=== PATIENT | female | born 1960 | race African-American/Black ===

== ENCOUNTER 2017-11-07 11:27 | Emergency (ER) | payer MEDICARE, MEDICAID ==
[~2017-11-07] VITALS: Ht 165.1 cm; Wt 91.6 kg
[~2017-11-07 11:27] MED LIST: AMLODIPINE BESY10 MG ORAL; BENADRYL25 MG ORAL; BYSTOLIC10 MG ORAL; CYCLOBENZAPRINE10 MG ORAL; METOPROLOL SUCC25 MG ORAL; NORCO 5-325 TA1 EACH ORAL; PROMETHAZI6.25 MG/1 ORAL
[2017-11-07 11:40] VITALS: BP 153/85
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
[2017-11-07 12:19] VITALS: BP 142/86
[2017-11-07] MEDS ORDERED: Methocarbamol 500mg tab ORAL ONE (12:30)
[2017-11-07] MEDS ORDERED: Acetaminophen 500mg (ES) tab ORAL ONE (12:30)
[2017-11-07] MEDS ORDERED: ROBAXIN500 MG PO (12:57)
[2017-11-07] MEDS ORDERED: TYLENOL EXTRA500 MG ORAL (12:57)
[2017-11-07] MEDS ORDERED: LIDOCAINE700 M1 TP (12:57)
[2017-11-07 13:16] VITALS: BP 140/86
--- NOTE | 2017-11-08 09:32 | Diagnostic Imaging Report ---
Indication: Right shoulder pain Technique: Right shoulder 3 views Comparison: None Findings: There is no acute fracture or dislocation. Acromioclavicular degenerative changes are seen. Soft tissues are grossly unremarkable. There is osteopenia. Impression: No acute osseous abnormality.
== END 2017-11-07 13:16 | disposition home or self-care (01) ==
LOC: EMR 11:46
DX: M54.5 Low back pain (principal); M25.511 Pain in right shoulder; M85.821 Other specified disorders of bone density and structure, right upper arm
CPT/HCPCS: 99284

== ENCOUNTER 2019-04-15 11:20 | Emergency (ER) | payer MEDICARE, MEDICAID ==
[~2019-04-15] VITALS: Ht 170.2 cm; Wt 63.5 kg
[~2019-04-15 11:20] MED LIST changes: +LIDOCAINE700 M1 TP; +ROBAXIN500 MG PO; +TYLENOL EXTRA500 MG ORAL
[2019-04-15 11:24] VITALS: BP 152/90
--- NOTE | 2019-04-15 11:28 | NUR ---
ED Nurse Note: PT. BROUGHT IN BY RA 826 FROM HOME DUE TO ANXIETY THAT STARTED TODAY. PER EMS, PT. IS NON-COMPLIANT WITH HER MEDICATION REGIMEN. PT. AAOX4. AMBULATORY. NO S/S OF ACUTE DISTRESS NOTED AT THIS TIME.
[2019-04-15 12:26] LABS: APPEARANCE,URINE CLEAR; BASOPHILS % (AUTO) 1.5 % (0.0-2.0); BILIRUBIN, URINE NEGATIVE (NEGATIVE); COLOR,URINE PALE YELLOW; EOSINOPHILS % (AUTO) 0.2 % (0.0-3.0); GLUCOSE, URINE (UA) NEGATIVE (NEGATIVE); HEMATOCRIT 43.2 % (37.0-47.0); HEMOGLOBIN 14.4 G/DL (12.0-16.0); KETONES,URINE NEGATIVE (NEGATIVE); LEUKOCYTE ESTERASE ,URINE NEGATIVE (NEGATIVE); LYMPHOCYTES % (AUTO) 17.5 % (20.0-45.0); MEAN CORPUSCULAR VOLUME 88 FL (80-99); MONOCYTES % (AUTO) 7.3 % (1.0-10.0); NEUTROPHILS % (AUTO) 73.6 % (45.0-75.0); NITRITE,URINE NEGATIVE (NEGATIVE); PH,URINE 6 (4.5-8.0); PLATELET COUNT 323 K/UL (150-450); PROTEIN,URINE 2+ (NEGATIVE); RED BLOOD COUNT 4.94 M/UL (4.20-5.40); RED CELL DISTRIBUTION WIDTH 12.6 % (11.6-14.8); UROBILINOGEN,URINE NORMAL MG/DL (0.0-1.0); WHITE BLOOD COUNT 12.1 K/UL (4.8-10.8)
[2019-04-15 12:41] LABS: ANION GAP 11 mmol/L (5-15); BLOOD UREA NITROGEN 9 mg/dL (7-18); CALCIUM 9.6 MG/DL (8.5-10.1); CARBON DIOXIDE 30 MMOL/L (21-32); CHLORIDE 102 MMOL/L (98-107); CREATININE 0.7 MG/DL (0.55-1.30); POTASSIUM 3.4 MMOL/L (3.5-5.1); SODIUM 143 MMOL/L (136-145)
[2019-04-15 12:45] LABS: ALANINE AMINOTRANSFERASE 36 U/L (12-78); ALBUMIN 4.3 G/DL (3.4-5.0); ALBUMIN/GLOBULIN RATIO 0.8 (1.0-2.7); ALKALINE PHOSPHATASE 85 U/L (46-116); ASPARTATE AMINO TRANSFERASE 29 U/L (15-37); BILIRUBIN,TOTAL 0.3 MG/DL (0.2-1.0)
--- NOTE | 2019-04-15 13:00 | NUR ---
ER DISCHARGE NOTE: Patient is cleared to be discharged per ERMD, pt is aox4, on room air, with stable vital signs. pt was given dc and prescription instructions, pt was able to verbalize understanding, pt is able to ambulate with steady gait. pt took all belongings.
[2019-04-15 14:38] VITALS: BP 152/90
--- NOTE | 2019-04-16 07:39 | Emergency Room Report ---
History of Present Illness General Chief Complaint: General Complaint Source: Patient, EMS Present Illness HPI 58-year-old female presents ED for evaluation. States that she is having adverse reaction to her hydroxyzine. Recently prescribed for anxiety. States that her thoughts are racing and she feels very anxious. States this is a new medication. Denies hearing voices. Denies SI or HI. Denies any weakness. Denies any dizziness. Denies chest pain or shortness of breath. Denies abdominal pain. No other aggravating relieving factors. Denies any other associated symptoms Allergies: Coded Allergies: No Known Allergies (Unverified , 09/29/15) Patient History Past Medical History: HTN Past Surgical History: none Pertinent Family History: none Social History: Denies: smoking, alcohol use, drug use Now: No Immunizations: UTD Reviewed Nursing Documentation: PMH: Agreed; PSxH: Agreed Nursing Documentation-PMH Hx Cardiac Problems: No - arthritis Hx Hypertension: Yes Hx Cancer: No Hx Gastrointestinal Problems: No Hx Neurological Problems: No Review of Systems All Other Systems: negative except mentioned in HPI Physical Exam Vital Signs Date Time Temp Pulse Resp B/P (MAP) Pulse Ox O2 Delivery O2 Flow Rate FiO2 04/15/19 11:12 97.9 90 16 152/90 (110) 100 Room Air Sp02 EP Interpretation: reviewed, normal General Appearance: no apparent distress, alert, GCS 15, non-toxic Head: normocephalic, atraumatic Eyes: bilateral eye normal inspection, bilateral eye PERRL ENT: hearing grossly normal, normal pharynx, no angioedema, normal voice Neck: full range of motion, supple/symm/no masses Respiratory: chest non-tender, lungs clear, normal breath sounds, speaking full sentences Cardiovascular #1: regular rate, rhythm, no edema Cardiovascular #2: 2+ carotid (R), 2+ carotid (L), 2+ radial (R), 2+ radial (L) , 2+ dorsalis pedis (R), 2+ dorsalis pedis (L) Gastrointestinal: normal bowel sounds, non tender, soft, non-distended, no guarding, no rebound Rectal: deferred Genitourinary: normal inspection, no CVA tenderness Musculoskeletal: back normal, gait/station normal, normal range of motion, non- tender Neurologic: alert, oriented x3, responsive, motor strength/tone normal, sensory intact, speech normal Psychiatric: judgement/insight normal, memory normal, no suicidal/homicidal ideation, no delusions, anxious Reflexes: 3+ bicep (R), 3+ bicep (L), 3+ tricep (R), 3+ tricep (L), 3+ knee (R) , 3+ knee (L) Lymphatic: no adenopathy Medical Decision Making Diagnostic Impression: Primary Impression: Adverse reaction to drug Qualified Codes: T50.905A - Adverse effect of unspecified drugs, medicaments and biological substances, initial encounter Additional Impressions: Chronic pain syndrome Opiate dependence Qualified Codes: F11.29 - Opioid dependence with unspecified opioid-induced disorder ER Course Hospital Course 58-year-old female presents with anxiety, thoughts racing after taking hydroxyzine. Differential diagnoses include: psychosis, ETOH, anxiety Clinical course Patient placed on stretcher. on youth nutritional monitor. After initial history and physical I ordered labs, IVFs labs reviewed- minimal leukocytosis, hemoglobin/hematocrit stable, UDS + opiates , electrolytes okay Review of cures patient is receiving extensive narcotic and controlled prescriptions on a monthly basis. On reassessment patient states she is feeling better. Patient is showing me pill bottles with her multiple medications. When we reviewed the pill that she says is hydroxyzine is actually amlodipine. I am concerned that patient is not also taking her medication appropriately and I explained to her the importance of properly identifying these medications. I spoke to PMD Dr. Mckeon; agrees that patient can be safely discharged and he will see in his office today if she chooses to I. I feel this is a highly complex case requiring extensive working including EKG/Rhythm strip, Xray/CT/US, Blood/urine lab work, repeat exams while in ED, and administration of strong opiates/narcotics for pain control, admission to hospital or close patient follow up. Diagnosis - adverse reaction to drug, chronic pain syndrome, opiate dependence Stable and discharged to home. Followup with PMD. Return to ED if symptoms recur or worse Labs Test 04/15/19 12:00 White Blood Count 12.1 K/UL (4.8-10.8) Red Blood Count 4.94 M/UL (4.20-5.40) Hemoglobin 14.4 G/DL (12.0-16.0) Hematocrit 43.2 % (37.0-47.0) Mean Corpuscular Volume 88 FL (80-99) Mean Corpuscular Hemoglobin 29.1 PG (27.0-31.0) Mean Corpuscular Hemoglobin Concent 33.2 G/DL (32.0-36.0) Red Cell Distribution Width 12.6 % (11.6-14.8) Platelet Count 323 K/UL (150-450) Mean Platelet Volume 6.7 FL (6.5-10.1) Neutrophils (%) (Auto) 73.6 % (45.0-75.0) Lymphocytes (%) (Auto) 17.5 % (20.0-45.0) Monocytes (%) (Auto) 7.3 % (1.0-10.0) Eosinophils (%) (Auto) 0.2 % (0.0-3.0) Basophils (%) (Auto) 1.5 % (0.0-2.0) Urine Color Pale yellow Urine Appearance Clear Urine pH 6 (4.5-8.0) Urine Specific [place] 1.015 (1.005-1.035) Urine Protein 2+ (NEGATIVE) Urine Glucose (UA) Negative (NEGATIVE) Urine Ketones Negative (NEGATIVE) Urine Blood 1+ (NEGATIVE) Urine Nitrite Negative (NEGATIVE) Urine Bilirubin Negative (NEGATIVE) Urine Urobilinogen Normal MG/DL (0.0-1.0) Urine Leukocyte Esterase Negative (NEGATIVE) Urine RBC 0-2 /HPF (0 - 2) Urine WBC 0-2 /HPF (0 - 2) Urine Squamous Epithelial Cells Few /LPF (NONE/OCC) Urine Bacteria Occasional /HPF (NONE) Sodium Level 143 MMOL/L (136-145) Potassium Level 3.4 MMOL/L (3.5-5.1) Chloride Level 102 MMOL/L (98-107) Carbon Dioxide Level 30 MMOL/L (21-32) Anion Gap 11 mmol/L (5-15) Blood Urea Nitrogen 9 mg/dL (7-18) Creatinine 0.7 MG/DL (0.55-1.30) Estimat Glomerular Filtration Rate > 60 mL/min (>60) Glucose Level 124 MG/DL (74-106) Calcium Level 9.6 MG/DL (8.5-10.1) Total Bilirubin 0.3 MG/DL (0.2-1.0) Aspartate Amino Transf (AST/SGOT) 29 U/L (15-37) Alanine Aminotransferase (ALT/SGPT) 36 U/L (12-78) Alkaline Phosphatase 85 U/L (46-116) Total Protein 9.8 G/DL (6.4-8.2) Albumin 4.3 G/DL (3.4-5.0) Globulin 5.5 g/dL Albumin/Globulin Ratio 0.8 (1.0-2.7) Salicylates Level 1.1 ug/mL (2.8-20) Urine Opiates Screen Positive (NEGATIVE) Acetaminophen Level < 2 MCG/ML (10-30) Urine Barbiturates Screen Negative (NEGATIVE) Phencyclidine (PCP) Screen Negative (NEGATIVE) Urine Amphetamines Screen Negative (NEGATIVE) Urine Benzodiazepines Screen Negative (NEGATIVE) Urine Cocaine Screen Negative (NEGATIVE) Urine Marijuana (THC) Screen Negative (NEGATIVE) Serum Alcohol < 3 mg/dL Last Vital Signs Date Time Temp Pulse Resp B/P (MAP) Pulse Ox O2 Delivery O2 Flow Rate FiO2 04/15/19 14:38 97.9 90 16 152/90 100 Room Air Status: improved Disposition: HOME, SELF-CARE Condition: Stable Referrals: NOT CHOSEN IPA/MD,REFERRING Patient Instructions: Polypharmacy Problems, [id number] Norberto Heart MD Apr 16, 2019 07:39
== END 2019-04-15 13:00 | disposition home or self-care (01) ==
LOC: EDBD 11:20 → EMR 11:40
DX: T43.595A Adverse effect of other antipsychotics and neuroleptics, initial encounter (principal); I10 Essential (primary) hypertension; M19.90 Unspecified osteoarthritis, unspecified site; G89.4 Chronic pain syndrome; F11.29 Opioid dependence with unspecified opioid-induced disorder; F41.9 Anxiety disorder, unspecified; Y92.9 Unspecified place or not applicable
CPT/HCPCS: 36415; 80053; 80307; 81003; 85025; 96360; 99284; G0480; 80329

== ENCOUNTER → 2020-02-17 | Outpatient (CLI) | payer MEDICARE, MEDICAID ==
--- NOTE | 2020-02-17 18:01 | Diagnostic Imaging Report ---
Indication: Cough Technique: XRAY Chest 2v Comparison: 09/29/2015 Findings: Heart size and mediastinal contours within normal limits and stable compared to the prior exam. Moderate atherosclerotic calcifications noted in the aortic arch. There is no focal airspace consolidation. No pleural effusion, pneumothorax or radiographic evidence to suggest pulmonary edema. Bones appear slightly demineralized and there are very mild degenerative changes in the spine. There is no acute osseous abnormality. Impression: No radiographic evidence of acute cardiopulmonary disease.
== END | disposition home or self-care (01) ==
LOC: RAD 14:19
DX: Z01.818 Encounter for other preprocedural examination (principal); R05 Cough
CPT/HCPCS: 71046

== ENCOUNTER 2020-07-30 07:10 | Emergency (ER) | payer MEDICARE, MEDICAID ==
[~2020-07-30] VITALS: Ht 152.4 cm; Wt 74.8 kg
[2020-07-30 07:15] VITALS: BP 128/83
--- NOTE | 2020-07-30 07:15 | NUR ---
ED Nurse Note: Pt walked in to ED from home c/o bodyaches, sorethroat x6 days. Pt also reports chills. Respirations even and unlabored on room air. Vitals stable as documented. A+Ox4, speaking in complete sentences.
[2020-07-30] MEDS ORDERED: Ketorolac 30mg Inj IV ONE (07:45)
[2020-07-30 09:10] VITALS: BP 126/74
--- NOTE | 2020-07-30 09:10 | NUR ---
ER DISCHARGE NOTE: Patient is cleared to be discharged per ERMD, pt is aox4, on room air, with stable vital signs. pt was given dc and prescription instructions, pt was able to verbalize understanding, pt id band and iv site removed without complications. pt is able to ambulate with steady gait. pt took all belongings.
--- NOTE | 2020-07-30 10:24 | Emergency Room Report ---
History of Present Illness General Chief Complaint: Flu Like Symptoms Source: Patient Present Illness HPI 59 yo Female presents for evaluation. States she has had body aches, cough, sore throat for the last 6 days. No fever. Pain is dull, 10 out of 10, nonradiating. States that she recently saw her PMD. Was scheduled to see him today but states that she felt very weak. States she has had Covid testing A ugust but not recently. Denies chest pain or shortness of breath. No other aggravating relieving factors. Denies any other associated symptoms Allergies: Coded Allergies: No Known Allergies (Unverified , 09/29/15) COVID-19 Screening Contact w/high risk pt: No Experienced COVID-19 symptoms?: Yes COVID-19 Testing performed PRICING ACTUARY: Yes - 02/27/20 COVID-19 Screening: Negative COVID-19 COVID-19 Testing Source: clinic Patient History Past Medical History: HTN Past Surgical History: none Pertinent Family History: none Social History: Denies: smoking, alcohol use, drug use Now: No Immunizations: UTD Reviewed Nursing Documentation: PMH: Agreed; PSxH: Agreed Nursing Documentation-PMH Hx Cardiac Problems: No - arthritis Hx Hypertension: Yes Hx Cancer: No Hx Gastrointestinal Problems: No - GERD Hx Neurological Problems: No Review of Systems All Other Systems: negative except mentioned in HPI Physical Exam Vital Signs Date Time Temp Pulse Resp B/P (MAP) Pulse Ox O2 Delivery O2 Flow Rate FiO2 07/30/20 07:12 98.6 95 19 121/79 (93) 98 Room Air Sp02 EP Interpretation: reviewed, normal General Appearance: no apparent distress, alert, GCS 15, non-toxic Head: normocephalic, atraumatic Eyes: bilateral eye normal inspection, bilateral eye PERRL ENT: hearing grossly normal, normal pharynx, no angioedema, normal voice Neck: full range of motion, supple/symm/no masses Respiratory: chest non-tender, lungs clear, normal breath sounds, speaking full sentences Cardiovascular #1: regular rate, rhythm, no edema Cardiovascular #2: 2+ carotid (R), 2+ carotid (L), 2+ radial (R), 2+ radial (L), 2+ dorsalis pedis (R), 2+ dorsalis pedis (L) Gastrointestinal: normal bowel sounds, non tender, soft, non-distended, no guarding, no rebound Rectal: deferred Genitourinary: normal inspection, no CVA tenderness Musculoskeletal: back normal, normal range of motion, gait/station normal, non- tender Neurologic: alert, motor strength/tone normal, oriented x3, sensory intact, responsive, speech normal Psychiatric: judgement/insight normal, memory normal, mood/affect normal, no suicidal/homicidal ideation Reflexes: 3+ bicep (R), 3+ bicep (L), 3+ tricep (R), 3+ tricep (L), 3+ knee (R), 3+ knee (L) Lymphatic: no adenopathy Medical Decision Making Diagnostic Impression: Primary Impression: Upper respiratory infection Qualified Codes: J06.9 - Acute upper respiratory infection, unspecified ER Course Hospital Course 59-year-old female presents with body aches, cough. Differential diagnoses include: URI, pharyngitis, otitis media, asthma Clinical course Patient placed on stretcher. After initial history, physical exam reveals a female in no acute distress. Bilateral TM unremarkable. No pharyngeal erythema. No tonsillar exudates. No lymphadenopathy. lungs clear. abdomen soft. Vitals stable. Not tachypneic. Not hypoxic. Given IV fluids. Rapid Covid negative. Discussed findings with patient. Safe for discharge with close outpatient follow-up. Patient will go see her PMD today Diagnosis - URI Stable and discharged home. Instructed to followup with PMD. Return to ED if symptoms recur or worsen Microbiology Date/Time Source Procedure Growth Status 07/30/20 07:45 Nasopharynx SARS-CoV-2 RdRp Gene Assay - Final Complete Last Vital Signs Date Time Temp Pulse Resp B/P (MAP) Pulse Ox O2 Delivery O2 Flow Rate FiO2 07/30/20 09:10 97.9 87 20 126/74 95 Room Air Status: improved Disposition: HOME, SELF-CARE Condition: Stable Referrals: NON PHYSICIAN (PCP) Patient Instructions: Upper Respiratory Infection, Adult, [id number] Norberto Heart MD Jul 30, 2020 10:24
== END 2020-07-30 09:10 | disposition home or self-care (01) ==
LOC: EMR 07:31
DX: J06.9 Acute upper respiratory infection, unspecified (principal); Z20.822 Contact with and (suspected) exposure to COVID-19; I10 Essential (primary) hypertension; K21.9 Gastro-esophageal reflux disease without esophagitis
CPT/HCPCS: 96361; 96374; 96375; 99284; J2405; J7030; U0002